=== PATIENT | male | born 1990 | race Caucasian/White ===

== ENCOUNTER 2018-09-06 03:37 | Emergency (ER) | payer BC, OTHER ==
[2018-09-06 03:52] VITALS: BP 141/106; PULSE 62; O2SAT 99
--- NOTE | 2018-09-06 04:10 | ERPHSYRPT ---
- History of Present Illness Time Seen by Provider: 09/06/18 03:50 Source: patient Exam Limitations: no limitations Patient Subjective Stated Complaint: pt is alert and oriented. pt is ambulatory with a steady gait. pt comes in with c/o toothache on his left side. pt states he was supposed to have the tooth pulled today but they were unable to get the tooth numbed enough and were unable to get the tooth out. he stated they told him that the infection had come back. pt was then put on an antibiotic. pt has a tooth in the back left of his mouth that is blackened. pt face is slightly swollen on the left side. pt states that the pain is going into his ear. Triage Nursing Assessment: see above Physician History: 27 y/o white male presents with left lower post molar pain for several days. pt seen by dentist yesterday. dentist could not extract tooth despite several attempts. pt was put on antibiotics and told to return in one week. pt not provided with rx for pain meds. he has been using ibuprofen and tylenol. Timing/Duration: gradual onset, persistent (few days) Severity: moderate ENT Location: dental Prearrival Treatment: prescription meds (antibiotics, tylenol and ibuprofen) Associated Symptoms: tooth pain Allergies/Adverse Reactions: azithromycin Allergy (Verified 09/06/18 03:52) Penicillins Allergy (Verified 09/06/18 03:52) Immunizations Up to Date: Yes - Review of Systems Constitutional: No Symptoms Eyes: No Symptoms Ears, Nose, & Throat: Other (dental pain) Respiratory: No Symptoms Cardiac: No Symptoms Abdominal/Gastrointestinal: No Symptoms Genitourinary Symptoms: No Symptoms Musculoskeletal: No Symptoms Skin: No Symptoms Neurological: No Symptoms Psychological: No Symptoms Endocrine: No Symptoms Hematologic/Lymphatic: No Symptoms Immunological/Allergic: No Symptoms All Other Systems: Reviewed and Negative - Past Medical History Pertinent Past Medical History: No Neurological History: No Pertinent History ENT History: No Pertinent History Cardiac History: No Pertinent History Respiratory History: No Pertinent History Endocrine Medical History: No Pertinent History Musculoskeletal History: No Pertinent History GI Medical History: No Pertinent History History: No Pertinent History Psycho-Social History: No Pertinent History Male Reproductive Disorders: No Pertinent History - Past Surgical History Past Surgical History: No Neuro Surgical History: No Pertinent History Cardiac: No Pertinent History Respiratory: No Pertinent History Gastrointestinal: No Pertinent History Genitourinary: No Pertinent History Male Surgical History: No Pertinent History - Social History Smoking Status: Current every day smoker How long have you smoked: 10 Drug Use: none - Nursing Vital Signs Nursing Vital Signs: Initial Vital Signs Temperature 98.2 F 09/06/18 03:43 Pulse Rate 62 09/06/18 03:43 Respiratory Rate 16 09/06/18 03:43 Blood Pressure 141/106 09/06/18 03:43 O2 Sat by Pulse Oximetry 99 09/06/18 03:43 Pain Scale Pain Intensity 10 - Physical Exam General Appearance: mild distress, alert, anxiety Eye Exam: bilateral eye: normal inspection, PERRL, EOMI Ear Exam: bilateral ear: auricle normal Nasal Exam: normal inspection Throat Exam: normal, pharynx normal, dental tenderness (left lower post molar), No excessive drooling, No mandibular swelling, No maxillary swelling Neck Exam: normal inspection, non-tender, supple, full range of motion, trachea midline Cardiovascular/Respiratory Exam: chest non-tender Abdominal Exam: non-tender Neurologic Exam: alert, oriented x 3, cooperative, 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 follow up with dentist next week. no more than a total of 4 grams of acetaminophen per day. use over the counter ibuprofen 600mg orally with food every 8 hours daily for pain. Prescriptions: Oxycodone HCl/Acetaminophen [Percocet 5-325 mg Tablet] 1 each PO Q12H PRN PRN # 4 tablet MDD 2 PRN Reason: Pain
[2018-09-06] MEDS ORDERED: PERCOCET TABLET 5/325MG PO STA (04:18)
[2018-09-06] MEDS ORDERED: PERCOCET TABLET 5/325MG ONE (04:21)
== END 2018-09-06 04:29 | disposition home or self-care (01) ==
LOC: ED 03:37
DX: K08.89 Other specified disorders of teeth and supporting structures (principal)
CPT/HCPCS: 99283; A9270-GY

== ENCOUNTER 2018-11-14 01:15 | Emergency (ER) | payer OTHER ==
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
[2018-11-14] MEDS ORDERED: Levofloxacin 250MG Tablet PO ONE (01:51)
[2018-11-14] MEDS ORDERED: Levofloxacin 250MG Tablet ONE (01:55)
[2018-11-14 02:36] VITALS: BP 116/69; PULSE 74; O2SAT 97
--- NOTE | 2018-11-14 09:01 | XRAY ---
Indication: Cough and dyspnea. Comparison: August 01, 2017. Portable chest again demonstrates normal heart and lungs. Bony thorax intact. No new/acute findings.
== END 2018-11-14 02:37 | disposition home or self-care (01) ==
LOC: ED 01:15
DX: J20.9 Acute bronchitis, unspecified (principal)
CPT/HCPCS: 71045; 99283; A9270-GY

== ENCOUNTER 2023-08-06 23:05 | Emergency (ER) | payer OTHER ==
[2023-08-06 23:24] VITALS: TEMP 99
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
[2023-08-06] MEDS ORDERED: Sodium Chloride 0.9% 1000 ML 1,000 ML ONE (23:44)
[2023-08-06 23:46] LABS: Absolute Neutrophil Ct (ANC) 4.28 x10^3/uL (1.4-6.9); BASOPHIL % 0.3 % (0.0-0.4); Basophil (Absolute #) 0.02 x10^3/uL (0-0.4); Eosinophil % 0.9 % (0.00-5.0); Eosinophil (Absolute #) 0.07 x10^3/uL (0-0.5); Hematocrit 39.5 % (42-50); Hemoglobin 13.6 g/dL (12.5-18.0); IMMATURE GRAN # 0.01 x10^3u/L (0.00-0.03); IMMATURE GRAN % 0.1 % (0.00-0.4); Lymphocyte (Absolute #) 2.45 x10^3/uL (1.0-4.6); Lymphocytes % 32.5 % (24.0-44.0); Mean Corpuscular Hemoglobin 31.3 pg (26-32); Mean Corpuscular Hgb Concent. 34.4 g/dL (32-36); Mean Platelet Volume 11.3 fL (7.5-11.0); Monocyte (Absolute #) 0.71 x10^3/uL (0.0-1.3); Monocytes % 9.4 % (0.0-12.0); Neutrophil % 56.8 % (36.0-66.0); Platelet Count 219 x10^3/uL (150-450); Red Blood Count 4.34 x10^6/uL (4.1-5.6); Red Cell Distribution Width 12.2 % (11.5-14.0); White Blood Count 7.5 x10^3/uL (4.0-10.5)
[2023-08-06 23:52] LABS: ANION GAP 9.8 MEQ/L (5-15); BILIRUBIN,TOTAL 0.6 mg/dL (0.2-1.3); Calcium 8.4 mg/dL (8.4-10.2); Creatinine 1 0.95 mg/dL (0.66-1.25); EST GLOMERULAR FILTRATION RATE 109.1 ML/MIN; Potassium 3.6 mmol/L (3.5-5.1); Total Protein 6.9 g/dL (6.3-8.2)
[2023-08-06] MEDS: Sodium Chloride 0.9% 1000 ML 1,000 ML IV STA (23:52)
[2023-08-07 00:14] LABS: Appearance Cloudy (Clear); Bacteria None Seen /HPF (None Seen); Bilirubin Negative (Negative); Blood Negative (Negative); Epithelial Cells None Seen /HPF (None Seen); Glucose, Urine Negative (Negative); Hyaline Casts NONE SEEN /LPF (0-2); Ketones Negative (Negative); Leukocyte Esterase Negative (Negative); Nitrite Negative (Negative); Protein,Urine Dip Negative (Negative); RBC 0-2 /HPF (0-5); Specific Gravity 1.015 (1.005-1.030); WBC 0-2 /HPF (0-5)
[2023-08-07 00:16] LABS: ADD URINE CULTURE? NO (NO)
[2023-08-07 00:33] VITALS: PULSE 63
--- NOTE | 2023-08-07 00:49 | XRAY ---
CLINICAL HISTORY: pain COMPARISON: None. TECHNIQUE: Multiple axial sections of the abdomen and pelvis were acquired without intravenous contrast administration. Sagittal and coronal reformatted images were obtained. One of the following dose reduction techniques was utilized for this exam: Automated exposure control, adjustment of the mA and/or kV according to patient size, and use of iterative reconstruction. FINDINGS: Both lung bases are clear. Cardiac size appears normal. Mildly enlarged liver showing homogenous attenuation. Two tiny 2 mm calcific foci are seen in segments 7 and 8 on the liver. Otherwise, no focal or diffuse abnormality is seen. No intrahepatic duct dilatation is seen. Gallbladder appears contracted. No radiodense calculus. The unenhanced pancreas, spleen, and both adrenal glands are normal. Tiny 2 mm calcific foci/granuloma in the spleen. A small 1.0 cm splenule is seen at the splenic hilum. Both kidneys are normal in size, location and axis. No hydronephrosis or cyst is seen on either side. A tiny 2 mm calculus is noted at the midpart of the right kidney. No left renal calculus. The urinary bladder is partially distended and appears normal. The prostate gland is within normal CT limits. Central prostatic calcifications. The stomach and distal esophagus appear unremarkable. Small bowel loops are normal. A few scattered sigmoid diverticula without evidence of acute diverticulitis. Mild scattered colonic stool volume. Appendix appears normal. A few clustered calcifications/calcified which are seen in the right femoral region. No evidence of mesenteric or retroperitoneal lymph. Bilateral prominent inguinal lymph nodes. No free fluid or free intraperitoneal air is seen. No acute osseous abnormality. IMPRESSION: 1. No acute abdominopelvic abnormality. 2. Tiny 2 mm nonobstructing right renal calculus. 3. Tiny hepatosplenic granulomata. Electronically Signed by: Trina Sweet MD. (08/07/2023 00:45:00 EDT)
[2023-08-07 01:03] VITALS: BP 116/69; RESP 15
[2023-08-07 01:11] VITALS: O2SAT 98
== END 2023-08-07 01:30 | disposition home or self-care (01) ==
LOC: ED 23:05
DX: R10.9 Unspecified abdominal pain (principal); N20.0 Calculus of kidney; K59.89 Other specified functional intestinal disorders; K57.30 Diverticulosis of large intestine without perforation or abscess without bleeding
CPT/HCPCS: 36000; 36415; 74176; 80053; 81001; 83690; 84484; 85025; 96360; 99284

== ENCOUNTER 2023-12-22 23:02 | Emergency (ER) | payer MEDICAID, OTHER ==
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
[2023-12-22 23:19] VITALS: TEMP 99.8; O2SAT 100
[2023-12-22] MEDS ORDERED: Ativan 1 MG ONE (23:21)
[2023-12-22] MEDS: Ativan 1 MG PO ONE (23:21)
[2023-12-22 23:33] LABS: Absolute Neutrophil Ct (ANC) 7.57 x10^3/uL (1.78-5.38); BASOPHIL % 0.4 % (0.2-1.2); Basophil (Absolute #) 0.04 x10^3/uL (0.01-0.08); Eosinophil % 0.8 % (0.8-7.0); Eosinophil (Absolute #) 0.08 x10^3/uL (0.04-0.54); Hematocrit 40.9 % (40.1-51.0); Hemoglobin 13.8 g/dL (13.7-17.5); IMMATURE GRAN # 0.03 x10^3u/L (0.001-0.031); IMMATURE GRAN % 0.3 % (0.001-0.429); Lymphocyte (Absolute #) 1.61 x10^3/uL (1.32-3.57); Lymphocytes % 15.6 % (21.8-53.1); Mean Cell Volume 92.5 fL (79.0-92.2); Mean Corpuscular Hemoglobin 31.2 pg (25.7-32.2); Mean Corpuscular Hgb Concent. 33.7 g/dL (32.3-36.5); Monocyte (Absolute #) 0.99 x10^3/uL (0.30-0.82); Monocytes % 9.6 % (5.3-12.2); Neutrophil % 73.3 % (34.0-67.9); Platelet Count 231 x10^3/uL (163-337); Red Blood Count 4.42 x10^6/uL (4.63-6.08); Red Cell Distribution Width 11.8 % (11.6-14.4); White Blood Count 10.3 x10^3/uL (4.23-9.07)
[2023-12-22 23:40] LABS: Appearance Clear (Clear); Bacteria None Seen /HPF (None Seen); Bilirubin Negative (Negative); Blood Negative (Negative); Epithelial Cells None Seen /HPF (None Seen); Glucose, Urine Negative (Negative); Hyaline Casts NONE SEEN /LPF (0-2); Ketones Negative (Negative); Leukocyte Esterase Negative (Negative); Nitrite Negative (Negative); Protein,Urine Dip Negative (Negative); RBC 0-2 /HPF (0-5); Specific Gravity <=1.005 (1.005-1.030); Urobilinogen 0.2 mg/dL (0.2); WBC 0-2 /HPF (0-5)
[2023-12-22 23:48] LABS: ADD URINE CULTURE? NO (NO); ALBUMIN 4.5 g/dL (3.5-5.0); ANION GAP 16.8 MEQ/L (5-15); BILIRUBIN,TOTAL 0.6 mg/dL (0.2-1.3); Calcium 9.3 mg/dL (8.4-10.2); Creatinine 1 0.97 mg/dL (0.66-1.25); EST GLOMERULAR FILTRATION RATE 106.4 ML/MIN; Potassium 3.7 mmol/L (3.5-5.1); Total Protein 7.2 g/dL (6.3-8.2)
[2023-12-22 23:50] LABS: Amphetamine,Urine NEGATIVE (NEGATIVE); Barbiturate,Urine NEGATIVE (NEGATIVE); Benzodiazepine,Urine NEGATIVE (NEGATIVE); Cocaine,Urine NEGATIVE (NEGATIVE); Methadone,Urine NEGATIVE (NEGATIVE); Opiate,Urine NEGATIVE (NEGATIVE); PCP,Urine NEGATIVE (NEGATIVE); THC,Urine POSITIVE (NEGATIVE)
[2023-12-23 00:48] VITALS: BP 132/90; PULSE 91; RESP 16
--- NOTE | 2023-12-23 08:14 | XRAY ---
Indication: Left chest pain. Comparison: November 14, 2018 Portable chest again demonstrates normal heart, lungs, and bony thorax.
== END 2023-12-23 00:52 | disposition home or self-care (01) ==
LOC: ED 23:02
DX: F41.9 Anxiety disorder, unspecified (principal); R20.2 Paresthesia of skin; I10 Essential (primary) hypertension
CPT/HCPCS: 36415; 71045; 80053; 80307; 81001; 84484; 85025; 99283; A9270-GY

== ENCOUNTER 2024-02-08 20:25 | Emergency (ER) | payer MEDICAID ==
[2024-02-08 20:41] VITALS: TEMP 98.4; O2SAT 98
[2024-02-08] MEDS ORDERED: NORCO 5/325 MG ONE (20:54)
[2024-02-08] MEDS ORDERED: Adacel Vial IM ONE (20:54)
[2024-02-08] MEDS: NORCO 5/325 MG PO ONE (20:57)
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
[2024-02-08] MEDS: Adacel Vial IM ONE (21:00)
[2024-02-08] MEDS ORDERED: MOTRIN 600 MG ONE (21:06)
[2024-02-08] MEDS: MOTRIN 600 MG PO ONE (21:07)
[2024-02-08] MEDS ORDERED: Vibramycin 100 MG ONE (21:09)
[2024-02-08] MEDS ORDERED: BACIGUENT PACKET ONE (21:09)
[2024-02-08] MEDS: Vibramycin 100 MG PO ONE (21:12)
[2024-02-08 21:27] VITALS: BP 151/97; PULSE 88; RESP 19
== END 2024-02-08 21:28 | disposition home or self-care (01) ==
LOC: ED 20:25
DX: S61.112A Laceration without foreign body of left thumb with damage to nail, initial encounter (principal); W27.0XXA Contact with workbench tool, initial encounter; Z79.899 Other long term (current) drug therapy; Z23 Encounter for immunization
CPT/HCPCS: 90471; 90715; 99283; A9270-GY

== ENCOUNTER 2024-06-08 21:13 | Emergency (ER) | payer MEDICAID, OTHER ==
[2024-06-08 21:28] VITALS: TEMP 98.4
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
[2024-06-08] MEDS ORDERED: ZOFRAN ODT 4 MG ONE (22:08)
[2024-06-08] MEDS ORDERED: Hydromorphone 1 mg/ml Injection ONE (22:08)
[2024-06-08] MEDS: ZOFRAN ODT 4 MG PO ONE (22:09)
[2024-06-08] MEDS: Hydromorphone 1 mg/ml Injection IM ONE (22:10)
--- NOTE | 2024-06-08 23:30 | XRAY ---
CLINICAL HISTORY: Blunt trauma COMPARISON: No previous studies are available for comparison. TECHNIQUE: CT scan of the cervical spine was performed without the administration of intravenous contrast. Contiguous axial images were obtained from the skull base to the upper thoracic spine. Coronal and sagittal reformatted images were also reviewed. One of the following dose-reduction techniques was utilized for this exam. Automated exposure control, adjustment of the mA and/or kV according to patient size, and use of iterative reconstruction. FINDINGS: Vertebrae: No evidence of acute fracture. Minimal grade I anterolisthesis of C4 over C5, appears to be an early degenerative etiology, however, traumatic subluxation cannot be excluded. Straightening of cervical curvature, likely due to muscle spasm. The vertebral bodies are normal in height . Intervertebral Discs: Small disc herniation at C4-C5 level, indenting the ventral thecal sac Facet Joints: The facet joints are normal without evidence of dislocation, subluxation, or significant degenerative changes. Neural Foramina: The neural foramina are patent bilaterally at all levels. No evidence of foraminal narrowing or nerve root compression. Prevertebral Soft Tissues: The prevertebral soft tissues are normal in thickness without evidence of mass or abnormal fluid collection. Additional Findings: No other significant findings are noted in the visualized soft tissue structures or bony elements. IMPRESSION: No evidence of acute fracture in the cervical spine . Minimal grade I anterolisthesis of C4 over C5, appears to be early degenerative etiology, however, traumatic subluxation cannot be excluded. Recommended clinical correlation Straightening of cervical curvature, likely due to muscle spasm. Electronically Signed by: Trina Sweet MD. (06/08/2024 23:26:29 EST)
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
--- NOTE | 2024-06-08 23:40 | XRAY ---
CLINICAL HISTORY: Blunt trauma COMPARISON: None. TECHNIQUE: X-ray of the right foot performed in AP, oblique and lateral 3 views. FINDINGS: Normal bone mineral density noted. Radiological examination of foot demonstrates no lytic or sclerotic bone lesion. No definite fracture is visible. Cortical margins of the osseous structures are within normal limits. Normal metatarsophalangeal and interphalangeal joint spaces. Articular margins are intact. No focal abnormality seen in great toe. Mild periarticular soft tissue swelling around the ankle joint and extending along the dorsum of the foot IMPRESSION: 1. No acute fractures or dislocations. 2. Mild periarticular soft tissue swelling around the ankle joint and extending along the dorsum of the foot. DISCLAIMER:A subtle bone abnormality or fracture may not be readily apparent on x-rays, thus clinical correlation and further imaging including follow up CT, MRI, or follow up x-rays are advised as needed. Electronically Signed by: Trina Sweet MD. (06/08/2024 23:36:56 EST)
--- NOTE | 2024-06-08 23:42 | XRAY ---
CLINICAL HISTORY: Blunt trauma COMPARISON: None. TECHNIQUE: The examination of the right ankle joint is performed in AP, lateral, and oblique 3 views. FINDINGS: Soft tissue swelling is noted at the ankle. No obvious/definite acute bony abnormality. Bone density is normal. No lytic or sclerotic lesion. Visualized joints are well aligned. IMPRESSION: 1. Soft tissue swelling is noted at the ankle. 2. No obvious/definite acute bony abnormality. DISCLAIMER:A subtle bone abnormality or fracture may not be readily apparent on x-rays, thus clinical correlation and further imaging including follow up CT, MRI, or follow up x-rays are advised as needed. Electronically Signed by: Trina Sweet MD. (06/08/2024 23:37:57 EST)
--- NOTE | 2024-06-08 23:44 | XRAY ---
CLINICAL HISTORY: Blunt trauma COMPARISON: None. TECHNIQUE: X-ray examination of the left shoulder joint is performed in AP, internal/external rotation, and Y projections. FINDINGS: Possible undisplaced avulsion fracture of the greater tubercle of the humerus bone, as evidenced by a cortical defect at the humeral head in one view. No dislocation or subluxation. No lytic or sclerotic lesion. Bone density normal. Mild soft tissue swelling. IMPRESSION: 1. Possible undisplaced avulsion fracture of the greater tubercle of the humerus bone, as evidenced by a cortical defect/lucency at the humeral head in one view. Follow-up/CT scan suggested. 2. Mild soft tissue swelling. DISCLAIMER:A subtle bone abnormality or fracture may not be readily apparent on x-rays, thus clinical correlation and further imaging including follow-up CT, MRI, or follow up x-rays are advised as needed. Electronically Signed by: Trina Sweet MD. (06/08/2024 23:40:46 EST)
[2024-06-09 00:02] VITALS: BP 117/72; PULSE 84; RESP 16
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
[2024-06-09] MEDS ORDERED: Norflex 60 MG/2 ML ONE (00:31)
[2024-06-09] MEDS: Norflex 60 MG/2 ML IM ONE (00:40)
[2024-06-09] MEDS ORDERED: PERCOCET TABLET 5/325MG ONE (00:41)
[2024-06-09] MEDS: PERCOCET TABLET 5/325MG PO STA (00:42)
[2024-06-09 00:43] VITALS: O2SAT 99
== END 2024-06-09 00:55 | disposition home or self-care (01) ==
LOC: ED 21:13
DX: S42.255A Nondisplaced fracture of greater tuberosity of left humerus, initial encounter for closed fracture (principal); S00.93XA Contusion of unspecified part of head, initial encounter; S90.01XA Contusion of right ankle, initial encounter; S90.31XA Contusion of right foot, initial encounter; W20.8XXA Other cause of strike by thrown, projected or falling object, initial encounter; Y92.64 Mine or pit as the place of occurrence of the external cause; Y99.0 Civilian activity done for income or pay; M54.2 Cervicalgia; Z79.891 Long term (current) use of opiate analgesic; Z79.899 Other long term (current) drug therapy
CPT/HCPCS: 70450; 72125; 73000; 73030; 73610; 73630; 96372; 99284; J1171; J2360; Q0162; A9270-GY